=== PATIENT | female | born 1960 | race Caucasian/White ===

== ENCOUNTER 2016-11-13 17:34 | Emergency (ER) | payer BC ==
[~2016-11-13] VITALS: Ht 170.2 cm; Wt 74.7 kg
[2016-11-13] MEDS ORDERED: ONDANSETRON 2MG/ML, 2ML ONE ×2 (18:27→19:46)
[2016-11-13] MEDS ORDERED: SODIUM CHLORIDE FLUSH 10ML SYR IVF ONE (18:30)
[2016-11-13] MEDS ORDERED: ONDANSETRON 2MG/ML, 2ML IVPush ONE ×2 (18:30→20:00)
[2016-11-13] MEDS ORDERED: SODIUM CHLORIDE 0.9% 1,000ML IVBOLUS ONE (18:30)
[2016-11-13 18:52] LABS: HEMOGLOBIN 14.8 g/dL (11.7-16.4)
[2016-11-13 19:07] LABS: PATH.CAST-FLAG NOT PRESENT; SPERM-FLAG NOT PRESENT; SRC-FLAG NOT PRESENT; XTAL-FLAG NOT PRESENT; YLC-FLAG NOT PRESENT
[2016-11-13 19:15] LABS: ASPARTATE AMINO TRANSFERASE 21 U/L (15-37); BLOOD UREA NITROGEN 19 mg/dL (7-18)
[2016-11-13] MEDS ORDERED: MORPHINE SULFATE 4 MG/ML, 1ML ONE (19:46)
[2016-11-13] MEDS ORDERED: MORPHINE SULFATE 4 MG/ML, 1ML IVPush ONE (20:00)
[2016-11-13] MEDS ORDERED: LORazepam 2 MG/ML, 1ML IVPush ONE (20:00)
[2016-11-13] MEDS ORDERED: LORazepam 2 MG/ML, 1ML ONE (20:06)
[2016-11-13] MEDS ORDERED: KETOROLAC 30 MG/1 ML ONE (20:59)
[2016-11-13] MEDS ORDERED: KETOROLAC 30 MG/1 ML IVPush ONE (21:00)
[2016-11-13 22:12] VITALS: BP 169/91
== END 2016-11-13 22:14 | disposition home or self-care (01) ==
LOC: ED 21:51
DX: R51 Headache (principal); R00.2 Palpitations; M62.830 Muscle spasm of back; M62.838 Other muscle spasm; J45.909 Unspecified asthma, uncomplicated; R42 Dizziness and giddiness; R07.89 Other chest pain
CPT/HCPCS: 36415; 70450; 80053; 81001; 83690; 84484; 84703; 85025; 93005; 96361; 96374; 96375; 96376; 99285; J1885; J2060; J2405; J7030